=== PATIENT | female | born 1970 | race Caucasian/White ===

== ENCOUNTER 2018-07-26 14:50 | Emergency (ER) | payer OTHER ==
[~2018-07-26] VITALS: Ht 167.6 cm; Wt 146.1 kg
[~2018-07-26 14:50] MED LIST: COL100 PO; LIPI20 PO; NOR10T PO; PREDNISONE1 MG
[2018-07-26 14:53] VITALS: Ht 167.6 cm; Wt 146.1 kg
[2018-07-26 21:16] VITALS: BP 127/87
== END 2018-07-26 21:16 | disposition home or self-care (01) ==
LOC: ED 14:50
DX: N30.90 Cystitis, unspecified without hematuria (principal); I82.4Z2 Acute embolism and thrombosis of unspecified deep veins of left distal lower extremity; R03.0 Elevated blood-pressure reading, without diagnosis of hypertension; F32.9 Major depressive disorder, single episode, unspecified
CPT/HCPCS: J1650

== ENCOUNTER 2018-12-08 10:57 | Inpatient (IN) | payer OTHER ==
[~2018-12-08] VITALS: Ht 165.1 cm; Wt 153.3 kg
[2018-12-08 11:26] LABS: BASOPHIL % 0.4 % (0-2); PLATELET COUNT 374 x10^3mcL (130-400)
[2018-12-08 11:29] LABS: RED CELL DISTRIBUTION WIDTH 17.4 % (11.5-14.5)
[2018-12-08 11:39] LABS: CARBON DIOXIDE 31.3 mmol/L (21-32); CHLORIDE SERUM 105 mmol/L (98-107); CREATININE SERUM 0.9 mg/dL (0.6-1.0); GFR1 > 60 mL/min; GLUCOSE SERUM 82 mg/dL (74-106); POTASSIUM SERUM 3.9 mmol/L (3.5-5.1); SODIUM SERUM 141 mmol/L (136-145)
[2018-12-08 11:44] LABS: ALKALINE PHOSPHATASE 157 U/L (46-116); ALT/SGPT 34 U/L (14-59); AST/SGOT 22 U/L (15-37); BILIRUBIN TOTAL 0.3 mg/dL (0.20-1.00)
[2018-12-08 11:46] LABS: ALBUMIN 2.9 g/dL (3.4-5.0)
[2018-12-08] MEDS ORDERED: ABILIFY5 M1 PO (14:49)
[2018-12-08] MEDS ORDERED: XANAX0.25 MG (14:49)
[2018-12-08] MEDS ORDERED: XANAX2 MG PO (15:00)
[2018-12-08] MEDS ORDERED: COUMADIN10 MG PO (15:01)
[2018-12-08 15:26] LABS: CHOLESTEROL/HDL RATIO 3.7; MAGNESIUM 1.6 mg/dL (1.8-2.4); PHOSPHOROUS 2.9 mg/dL (2.5-4.9)
[2018-12-08 15:34] LABS: FREE T4 0.95 ng/dL (0.76-1.46); FREE THYROXINE INDEX 2.2 ug/dL (1.4-4.5)
[2018-12-08 16:08] LABS: T3 TOTAL 1.17 ng/mL
[2018-12-08 16:13] VITALS: BP 125/75
[2018-12-08 16:18] VITALS: Ht 165.1 cm; Wt 153.3 kg
[2018-12-08 20:00] VITALS: BP 126/84
[2018-12-08 23:19] VITALS: BP 126/84
[2018-12-09 05:19] VITALS: BP 128/84
[2018-12-09 07:07] LABS: BASOPHIL % 0 % (0-2); PLATELET COUNT 428 x10^3mcL (130-400); RED CELL DISTRIBUTION WIDTH 17.3 % (11.5-14.5)
[2018-12-09 07:12] LABS: CALCIUM 8.5 mg/dL (8.5-10.1); CARBON DIOXIDE 21.9 mmol/L (21-32); CHLORIDE SERUM 105 mmol/L (98-107); GFR1 > 60 mL/min; GLUCOSE SERUM 181 mg/dL (74-106); SODIUM SERUM 140 mmol/L (136-145)
[2018-12-09 07:47] VITALS: BP 111/70
[2018-12-09 11:44] VITALS: BP 117/70
[2018-12-09 15:55] VITALS: BP 113/72
[2018-12-09 20:16] VITALS: BP 119/71
[2018-12-10 04:50] VITALS: BP 128/79
[2018-12-10 07:34] LABS: CALCIUM 8.1 mg/dL (8.5-10.1); CARBON DIOXIDE 25.2 mmol/L (21-32); CHLORIDE SERUM 108 mmol/L (98-107); CREATININE SERUM 0.8 mg/dL (0.6-1.0); GFR1 > 60 mL/min; GLUCOSE SERUM 119 mg/dL (74-106); POTASSIUM SERUM 4.4 mmol/L (3.5-5.1); SODIUM SERUM 142 mmol/L (136-145)
[2018-12-10 09:39] VITALS: BP 120/84
[2018-12-10 10:40] LABS: BASOPHIL % 0 % (0-2); PLATELET COUNT 411 x10^3mcL (130-400); RED CELL DISTRIBUTION WIDTH 17.1 % (11.5-14.5)
[2018-12-10 17:20] VITALS: BP 116/77
[2018-12-10 21:38] VITALS: BP 128/89
[2018-12-11 06:05] VITALS: BP 106/76
[2018-12-11 06:54] LABS: BASOPHIL % 0 % (0-2); PLATELET COUNT 423 x10^3mcL (130-400); RED CELL DISTRIBUTION WIDTH 16.8 % (11.5-14.5)
[2018-12-11 07:18] LABS: CALCIUM 7.7 mg/dL (8.5-10.1); CARBON DIOXIDE 30.1 mmol/L (21-32); CHLORIDE SERUM 107 mmol/L (98-107); CREATININE SERUM 0.6 mg/dL (0.6-1.0); GFR1 > 60 mL/min; GLUCOSE SERUM 142 mg/dL (74-106); POTASSIUM SERUM 4.4 mmol/L (3.5-5.1); SODIUM SERUM 141 mmol/L (136-145)
[2018-12-11 09:30] VITALS: BP 129/88
[2018-12-11 18:00] VITALS: BP 121/72
[2018-12-11 21:25] VITALS: BP 109/57
[2018-12-12 05:07] VITALS: BP 118/77
[2018-12-12 07:21] LABS: BASOPHIL % 0.1 % (0-2); PLATELET COUNT 454 x10^3mcL (130-400); RED CELL DISTRIBUTION WIDTH 17.2 % (11.5-14.5)
[2018-12-12 07:22] LABS: CARBON DIOXIDE 28.8 mmol/L (21-32); CHLORIDE SERUM 105 mmol/L (98-107); CREATININE SERUM 0.7 mg/dL (0.6-1.0); GFR1 > 60 mL/min; GLUCOSE SERUM 121 mg/dL (74-106); POTASSIUM SERUM 4.3 mmol/L (3.5-5.1); SODIUM SERUM 140 mmol/L (136-145)
[2018-12-12 08:19] VITALS: BP 118/77
[2018-12-12 09:09] VITALS: BP 127/71
[2018-12-12] MEDS ORDERED: LEVAQUIN750 MG PO (10:15)
[2018-12-12] MEDS ORDERED: MEDDP PO (10:17)
[2018-12-12 10:31] VITALS: BP 127/71
== END 2018-12-12 13:09 | disposition home or self-care (01) | DRG 139 ==
LOC: ED 10:57 → DU 14:45 → MU 12-09 10:14
PROVIDERS: ADMIT Family Medicine
DX: J18.9 Pneumonia, unspecified organism (principal); J96.01 Acute respiratory failure with hypoxia; E44.0 Moderate protein-calorie malnutrition; J44.0 Chronic obstructive pulmonary disease with (acute) lower respiratory infection; E83.42 Hypomagnesemia; E66.01 Morbid (severe) obesity due to excess calories; J45.901 Unspecified asthma with (acute) exacerbation; E78.5 Hyperlipidemia, unspecified; F32.9 Major depressive disorder, single episode, unspecified; Z68.43 Body mass index [BMI] 50.0-59.9, adult; Z86.718 Personal history of other venous thrombosis and embolism; Z87.891 Personal history of nicotine dependence
CPT/HCPCS: 36600; 84439; 85378; J0456; J0696; J2920; J2930; J3475; J7030; J7050; J7060; J7613; J7620; Q0092; Q9967